=== PATIENT | female | born 1935 | race Caucasian/White ===

== ENCOUNTER 2017-09-09 15:47 | Outpatient (CLI) | payer MEDICARE, OTHER | END 2017-09-09 15:48 | disposition home or self-care (01) | LOC: BICMAMMO 15:47 | PROVIDERS: ATTEND Family Medicine | DX: Z13.820 Encounter for screening for osteoporosis (principal); M81.0 Age-related osteoporosis without current pathological fracture; M47.896 Other spondylosis, lumbar region | CPT/HCPCS: 77080 ==

== ENCOUNTER 2018-06-23 14:17 | Outpatient (CLI) | payer MEDICARE, OTHER | END 2018-06-23 14:18 | disposition home or self-care (01) | LOC: BICMAMMO 14:17 | PROVIDERS: ATTEND Family Medicine | DX: Z12.31 Encounter for screening mammogram for malignant neoplasm of breast (principal); R92.1 Mammographic calcification found on diagnostic imaging of breast; Z80.3 Family history of malignant neoplasm of breast | CPT/HCPCS: 77063; 77067 ==

== ENCOUNTER 2018-09-26 13:03 | Inpatient (IN) | payer MEDICARE, OTHER ==
[2018-09-26 13:49] LABS: #Eosinphils 0.3 thou/uL (0.0-0.7); #Lymphocytes 1.7 thou/uL (1.20-3.40); #Monocytes 0.8 thou/uL (0.11-0.59); #Neutrophils 9.8 thou/uL (1.40-6.50); %Basophils 0.4 % (0.0-1.0); %Eosinophils 2.2 % (0.0-10.0); %Lymphocytes 13.3 % (21.0-51.0); %Monocytes 6.4 % (0.0-10.0); %Neutrophils 77.7 % (42.0-75.0); Hemoglobin 14.8 g/dL (12.0-16.0); Mean Corpuscular HGB CONC 31.5 g/dL (32.0-36.0); Mean Corpuscular Hemoglobin 29.3 pg (27.0-31.0); Mean Corpuscular Volume 93.2 fL (78.0-98.0); Mean Platelet Volume 7.8 fL (7.4-10.4); Platelet Count 408 thou/uL (130-400); RBC Distribution Width 11.9 % (11.5-14.5); Red Blood Cell (RBC) Count 5.06 mill/uL (4.20-5.40); White Blood Cell (WBC) Count 12.6 thou/uL (4.8-10.8)
--- NOTE | 2018-09-26 14:00 | RAD ---
PORTABLE CHEST: Date: 09-26-18 Provided Clinical History: Chest pain. FINDINGS: Comparison made of 04-01-16. The cardiac and mediastinal silhouette is unchanged in appearance. Vascular calcification is noted in volving the aortic arch. No focal consolidation, pleural fluid or pneumothorax apparent. IMPRESSION: No evidence for an acute cardiopulmonary process. POS: [facility]
[2018-09-26 15:23] LABS: ALT (SGPT) 13 U/L (8-55); AST (SGOT) 14 U/L (5-34); Albumin 4.1 g/dL (3.4-4.8); Alkaline Phosphatase 72 U/L (40-150); Anion Gap 15 mmol/L (10-20); BUN (Urea Nitrogen) 23 mg/dL (9.8-20.1); Bilirubin, Total 0.5 mg/dL (0.2-1.2); Calc. Creatinine Clearance 0 mL/min (70-130); Calcium 9.5 mg/dL (7.8-10.44); Carbon Dioxide 26 mmol/L (23-31); Chloride 100 mmol/L (98-107); Estimated GFR-MDRD 44; Globulin 2.9 g/dL (2.4-3.5); Glucose 136 mg/dL (83-110); Potassium 4.2 mmol/L (3.5-5.1); Sodium 137 mmol/L (136-145)
[2018-09-26] MEDS ORDERED: Ondansetron PF 4 MG/2 ML Vial ONE (16:35)
--- NOTE | 2018-09-26 17:09 | CT ---
CT BRAIN: Date: 09/26/18 HISTORY: Altered mental status. TECHNIQUE: Noncontrast enhanced CT images of brain obtained from the base of the skull to the vertex. Brain and bone windows are obtained. FINDINGS: CT images of the brain demonstrate hyperostosis frontalis interna. No evidence of acute intracranial masses, hemorrhages, strokes, or contusions seen. The ventricles are of normal size. IMPRESSION: Normal CT brain. POS: [facility]
[2018-09-26 18:38] LABS: Bilirubin Small (Negative); Blood, Urine Negative (Negative); Clarity CLEAR (Clear); Glucose, Urine (Dipstick) Negative (Negative); Leukocyte Negative (Negative); Nitrite Negative (Negative); Protein, Urine (Dipstick) Negative (Neg-Trace); Specific Gravity, Urine 1.019 (1.002-1.036); Urobilinogen 0.2 mg/dL (0.2-1.0)
[2018-09-26] MEDS ORDERED: Ondansetron PF 4 MG/2 ML Vial IVP PRN (22:58)
[2018-09-26] MEDS ORDERED: HYDROcodone/Acetaminophen 5/325 mg Tablet PO PRN (22:58)
[2018-09-26] MEDS: Sodium Chloride 0.9% 1,000 ML IV SCH (23:55)
[2018-09-27 01:08] VITALS: BMI 32.1
[2018-09-27 05:50] LABS: #Basophils 0.1 thou/uL (0.0-0.2); #Eosinphils 0.3 thou/uL (0.0-0.7); #Lymphocytes 2.1 thou/uL (1.20-3.40); #Monocytes 0.9 thou/uL (0.11-0.59); #Neutrophils 6.5 thou/uL (1.40-6.50); %Basophils 0.5 % (0.0-1.0); %Eosinophils 2.8 % (0.0-10.0); %Lymphocytes 21.3 % (21.0-51.0); %Monocytes 9.4 % (0.0-10.0); %Neutrophils 65.9 % (42.0-75.0); Hemoglobin 12.9 g/dL (12.0-16.0); Mean Corpuscular HGB CONC 31.3 g/dL (32.0-36.0); Mean Corpuscular Hemoglobin 29.7 pg (27.0-31.0); Mean Corpuscular Volume 94.8 fL (78.0-98.0); Mean Platelet Volume 7.8 fL (7.4-10.4); Platelet Count 338 thou/uL (130-400); RBC Distribution Width 11.8 % (11.5-14.5); Red Blood Cell (RBC) Count 4.35 mill/uL (4.20-5.40); White Blood Cell (WBC) Count 9.9 thou/uL (4.8-10.8)
[2018-09-27 06:16] LABS: Anion Gap 10 mmol/L (10-20); BUN (Urea Nitrogen) 25 mg/dL (9.8-20.1); Calc. Creatinine Clearance 51 mL/min (70-130); Calcium 9.1 mg/dL (7.8-10.44); Carbon Dioxide 24 mmol/L (23-31); Chloride 106 mmol/L (98-107); Estimated GFR-MDRD 48; Glucose 98 mg/dL (83-110); Potassium 4.8 mmol/L (3.5-5.1); Sodium 135 mmol/L (136-145)
--- NOTE | 2018-09-27 07:32 | HP ---
CHIEF COMPLAINT: Weakness, confusion, and history of UTI in the past. HISTORY OF PRESENT ILLNESS: She is an 83-year-old woman with past history of hypertension, hyperlipidemia. She was brought in because she started Bactrim for UTI from her PCP 3 days ago and now she started feeling confused, generalize weakness, and also nausea and vomiting. She called her PCP and she told her to bring back in the ER. The patient was brought to the ER with vitals; pulse 70, blood pressure 121/74, respirations 18, and temperature 99.4. In the ER, she showed some kind of dehydration with high BUN-creatinine ratio and brought in the hospital for dehydration and acute encephalopathy. The patient denies any fever or any cough. No any stroke like symptom. PAST MEDICAL HISTORY: Hypertension, hyperlipidemia, history of borderline diabetes. PAST SURGICAL HISTORY: She has history of colostomy with reversal, direct hernia repair. FAMILY HISTORY: Noncontributory. PSYCHIATRIC HISTORY: Depression. SOCIAL HISTORY: She denies alcohol use, any smoke use. Lives at home alone with good family support system. In the ER, she was given normal saline, 1 L of bolus and Zofran intravenous. REVIEW OF SYSTEMS: CONSTITUTIONAL: She does have weakness. No fever. No chills. EYES: No photophobia. No discharge. ENT: No epistaxis. No stridor. CARDIOVASCULAR: No chest pain. No syncope. No palpitation. RESPIRATORY: No cough. No shortness of breath. GASTROINTESTINAL: She does have some nausea and vomiting. No diarrhea. No constipation. MUSCULOSKELETAL: No joint stiffness. NEUROLOGIC: She does have some confusion, but no any mental status change. PHYSICAL EXAMINATION: GENERAL: When I examined her, she is elder woman, looks younger than age, responding to question properly, but does have some memory lapse. VITAL SIGNS: Pulse 53, blood pressure 142/64, respirations 20, temperature 98.4. HEENT: Head is atraumatic and normocephalic. Pupils are round and reactive. Extraocular muscles are intact. Ear, nose, and throat, normal. Tongue, mucosa moist. NECK: Supple. No JVD. No thyromegaly. CHEST: Normal vesicular breathing. No added sound. CVS: S1, S2 is audible. No S3, no S4. ABDOMEN: Soft, bowel sound is audible. EXTREMITIES: No pedal edema. DIRECTOR OF INSTITUTIONAL RESEARCH: Alert x3. No focal deficits. LABORATORY DATA: Urine show negative, no UTI. WBC 12.6, platelets 408, MCV 93, and hemoglobin 14.8. Chemistry; sodium 137, potassium 4.2, chloride 100, carbon dioxide 26, BUN 23, creatinine 1.18, and glucose 136. Total bilirubin 0.5. Ammonia 28. Serum total protein 7.0, albumin 4.1, globulin 2.9. TSH 3rd generation 1.3. CAT scan of head is normal. Chest x-ray normal. No evidence of any acute cardiopulmonary disease. ASSESSMENT: 1. Acute kidney injury. 2. Dehydration. 3. Acute encephalopathy. PLAN: 1. Acute kidney injury with dehydration most likely due to Bactrim. We will hold Bactrim, IV fluid. Follow BMP. 2. UTI ruled out. No need of antibiotics at this time. 3. Acute encephalopathy. Currently, she is stabilized, good metabolic, currently feeling much better. We will continue to monitor her closely. 4. PT consult. 5. Deep venous thrombosis prophylaxis, on Lovenox. 6. Full code. Job ID: [id number]
[2018-09-27] MEDS: Enoxaparin Sodium 40 MG/0.4 ML SYRINGE SC SCH (10:10)
--- NOTE | 2018-09-27 10:19 | MRI ---
MRI BRAIN WITHOUT AND WITH CONTRAST: Comparison: 09-26-18 History: Acute delirium. Bilateral leg weakness for two weeks. Technique: Multiplanar, multisequence MRI images were obtained of the brain without and with IV contr ast. FINDINGS: There are a few subtle scattered foci of high FLAIR signal in the subcortical and periventricular whi te matter, likely secondary to small vessel ischemic disease. No restricted diffusion is seen to sugg est an acute infarction. No abnormal enhancement is seen. There is no evidence of hydrocephalus, intracranial hemorrhage, or extraaxial fluid collections. The expected flow voids are present. The corpus callosum, pituitary, and craniocervical junction are unre markable. The calvarium and overlying soft tissues are unremarkable. The visualized paranasal sinuses and masto id air cells are well aerated. IMPRESSION: No evidence of acute intracranial abnormality. POS: [facility]
[2018-09-27] MEDS: Sodium Chloride 0.9% 1,000 ML IV SCH ×2 (10:20→20:45)
--- NOTE | 2018-09-27 12:48 | PDOC.PN ---
- Subjective Encounter Start Date: 09/27/18 Encounter Start Time: 11:00 Subjective: Patient examined, resting in bed, no complaints -: Family at the bedside -: Son reports able to do ADLs until 1 week ago - Objective Resuscitation Status - Order Detail: 09/26/18 22:58 Resuscitation Status Routine Resuscitation Status: FULL: Full Resuscitation Discussed with: patient Vital Signs & Weight: Vital Signs (12 hours) Temp Pulse Resp BP Pulse Ox 09/27/18 07:20 97.6 F 65 16 148/72 H 95 Weight Weight 84.867 kg Result Diagrams: 09/27/18 05:29 09/27/18 05:29 Additional Labs: Accuchecks 09/27/18 11:23 POC Glucose 150 H Phys Exam - Physical Examination HEENT: PERRLA, moist MMs Neck: no nodes, no JVD Respiratory: no wheezing, clear to auscultation bilateral Cardiovascular: RRR, no significant murmur Gastrointestinal: soft, non-tender Musculoskeletal: no edema, pulses present Neurological: normal sensation, moves all 4 limbs Lymphatic: no nodes Psychiatric: normal affect, A&O x 3 Skin: normal turgor, cap refill <2 seconds Dx/Plan (1) Weakness Code(s): R53.1 - WEAKNESS Status: Acute (2) Confusion state Code(s): F44.89 - OTHER DISSOCIATIVE AND CONVERSION DISORDERS Status: Acute (3) Hypertension Code(s): I10 - ESSENTIAL (PRIMARY) HYPERTENSION Status: Chronic - Plan cont current plan of care Stroke work-up, MRI today was unremarkable -: Will ask PT, OT and CM to evaluate for possible Rehab/Home PT -: Will repeat labs, follow culture results * . Review of Systems - Review of Systems Musculoskeletal: Other (generalized weakness to legs, unable to ambulate this past week as normal) Neurological: Confusion - Medications/Allergies Allergies/Adverse Reactions: Allergies Allergy/AdvReac Type Severity Reaction Status Date / Time No Known Allergies Allergy Unverified 09/26/18 23:17 Medications: Current Medications Acetaminophen (Tylenol) 650 mg PO Q4H PRN PRN Reason: Headache/Fever/Mild Pain (1-3) Hydrocodone Bitart/Acetaminophen (Sneads 5/325) 1 tab PO Q4H PRN PRN Reason: Moderate Pain (4-6) Enoxaparin Sodium (Lovenox) 40 mg SC 0900 [facility] Last Admin: 09/27/18 10:10 Dose: 40 mg Sodium Chloride (Normal Saline 0.9%) 1,000 mls @ 100 mls/hr IV .Q10H [facility] Last Admin: 09/27/18 10:20 Dose: 1,000 mls Ondansetron HCl (Zofran) 4 mg IVP Q6H PRN PRN Reason: Nausea/Vomiting Sodium Chloride (Flush - Normal Saline) 10 ml IVF Q12HR [facility] Last Admin: 09/27/18 10:20 Dose: 10 ml Sodium Chloride (Flush - Normal Saline) 10 ml IVF PRN PRN PRN Reason: Saline Flush
--- NOTE | 2018-09-27 14:47 | ULT ---
CAROTID DOPPLER ULTRASOUND: Date: 09/27/18 HISTORY: Confusion, weakness, and delirium. COMPARISON: None. TECHNIQUE: Real-time Duque scale, color Doppler, and spectral analysis of the extracranial carotid and vertebral arteries was performed. FINDINGS: The right vertebral artery is not well seen. Antegrade flow left vertebral artery. No elevated peak s ystolic velocity within the left internal carotid arterial system. No elevated peak systolic velociti es in the proximal or mid right internal carotid artery. The distal internal carotid artery is not we ll seen nor is the mid CCA. IMPRESSION: Nonvisualization of right vertebral artery, mid right CCA or distal right ICA. Nonemergent CT angiogr am may be beneficial if clinically warranted. POS: [facility]
[2018-09-27] MEDS ORDERED: HumaLOG 300 UNITS/3 ML VIAL SC PRN (17:31)
[2018-09-27] MEDS ORDERED: Dextrose 5% in Water 1,000 ML IV PRN (17:31)
[2018-09-27] MEDS ORDERED: Dextrose 50% Abboject 50 ML SYRINGE SLOW IVP PRN (17:31)
[2018-09-28] MEDS: Sodium Chloride 0.9% 1,000 ML IV SCH ×3 (04:36→17:45)
[2018-09-28] MEDS: Enoxaparin Sodium 40 MG/0.4 ML SYRINGE SC SCH (09:14)
--- NOTE | 2018-09-28 09:36 | CT ---
CT ANGIOGRAM GREAT VESSELS OF NECK WITH IV CONTRAST AND 3D MIP RECONSTRUCTIONS: 09/28/2018 PROVIDED CLINICAL HISTORY: Confusion. Weakness. Delirium. FINDINGS: There is a normal, three-vessel configuration of the great vessels at the arch. There is a prominent medialized retropharyngeal course of the common carotid arteries bilaterally. The vertebral, innomi earl, subclavian, and common carotid arteries demonstrate no evidence for significant stenosis. Mild atherosclerotic plaque involves the distal right CCA. The right internal carotid artery appears wit hout significant stenosis. The left internal carotid artery demonstrates mild stenosis, just distal to the origin. This is less than 50%. The visualized lung apices appear clear. No evidence for regional lymph node enlargement. Submandib ular and parotid glands appear unremarkable. Cervical spine degenerative changes are seen. No lytic or blastic lesions are evident. IMPRESSION: No significant stenosis is seen involving the great vessels of the neck. POS: [facility]
[2018-09-28] MEDS ORDERED: Iopamidol 370 76% 100 ML VIAL ONE (11:25)
[2018-09-28 11:38] LABS: ALT (SGPT) 10 U/L (8-55); AST (SGOT) 11 U/L (5-34); Albumin 3.3 g/dL (3.4-4.8); Alkaline Phosphatase 66 U/L (40-150); Anion Gap 10 mmol/L (10-20); BUN (Urea Nitrogen) 17 mg/dL (9.8-20.1); Bilirubin, Total 0.4 mg/dL (0.2-1.2); Calc. Creatinine Clearance 66 mL/min (70-130); Calcium 8.5 mg/dL (7.8-10.44); Carbon Dioxide 25 mmol/L (23-31); Chloride 106 mmol/L (98-107); Estimated GFR-MDRD 64; Globulin 2.2 g/dL (2.4-3.5); Glucose 200 mg/dL (83-110); Potassium 3.7 mmol/L (3.5-5.1); Protein, Total 5.5 g/dL (6.0-8.3); Sodium 137 mmol/L (136-145)
[2018-09-28] MEDS ORDERED: Senokot S 8.6-50 MG TAB PO PRN (12:06)
[2018-09-28] MEDS ORDERED: Bisacodyl 10 MG SUPP PR PRN (12:06)
--- NOTE | 2018-09-28 12:25 | PDOC.PN ---
- Subjective Encounter Start Date: 09/28/18 Encounter Start Time: 11:00 Subjective: patient examined, sleeping initially but easily arouses and alert -: C/o of right ankle pain, started to hurt overnight, denies injury -: Family mentioned pt is close to baseline with mentation, improved from adm - Objective Resuscitation Status - Order Detail: 09/26/18 22:58 Resuscitation Status Routine Resuscitation Status: FULL: Full Resuscitation Discussed with: patient Vital Signs & Weight: Vital Signs (12 hours) Temp Pulse Resp BP BP Pulse Ox 09/28/18 09:45 215/73 H 09/28/18 08:00 98.3 F 84 09/28/18 05:30 98.3 F 84 18 156/71 H 96 Weight Weight 84.867 kg I&O: 09/27/18 09/28/18 09/29/18 06:59 06:59 06:59 Intake Total 3930 247 Balance 3930 247 Result Diagrams: 09/27/18 05:29 09/28/18 11:06 Additional Labs: Accuchecks 09/28/18 09/28/18 09/27/18 12:06 05:47 19:39 POC Glucose 157 H 102 146 H 09/27/18 15:40 POC Glucose 147 H Phys Exam - Physical Examination HEENT: PERRLA, moist MMs Neck: no nodes, no JVD Respiratory: no wheezing, clear to auscultation bilateral Cardiovascular: RRR, no significant murmur Gastrointestinal: soft, non-tender Musculoskeletal: no edema, pulses present mild lateral edema noted to rt ankle, tender to palpation, no erythema/warm Neurological: moves all 4 limbs Lymphatic: no nodes Psychiatric: normal affect, A&O x 3 Skin: normal turgor, cap refill <2 seconds Dx/Plan (1) Weakness Code(s): R53.1 - WEAKNESS Status: Acute (2) Confusion state Code(s): F44.89 - OTHER DISSOCIATIVE AND CONVERSION DISORDERS Status: Resolved (3) Hypertension Code(s): I10 - ESSENTIAL (PRIMARY) HYPERTENSION Status: Chronic (4) Arthritis Code(s): M19.90 - UNSPECIFIED OSTEOARTHRITIS, UNSPECIFIED SITE Status: Chronic - Plan Awaiting PT eval and approval for SNF/Rehab placement -: Family and patient agree -: Ankle CXR for new onset ankle pain, pt has hx of OA. Elevate/ice -: Will continue to monitor * .
--- NOTE | 2018-09-28 12:59 | RAD ---
THREE VIEWS RIGHT ANKLE: INDICATION: Pain with ambulation, swelling, laterally. FINDINGS: There is soft tissue prominence of the right ankle, greatest at the lateral aspect. Mortise is intac t. There is no evidence of acute fracture. Osseous demineralization and scattered degenerative [place] ge present. There are vascular calcifications present. IMPRESSION: 1. Soft tissue prominence of the right ankle. 2. No underlying displaced fracture. POS: [facility]
[2018-09-28] MEDS: Acetaminophen 325 MG TAB PO PRN (18:16)
[2018-09-29] MEDS: Sodium Chloride 0.9% 1,000 ML IV SCH (05:00)
[2018-09-29 07:05] LABS: ALT (SGPT) 9 U/L (8-55); AST (SGOT) 10 U/L (5-34); Albumin 2.9 g/dL (3.4-4.8); Alkaline Phosphatase 53 U/L (40-150); Anion Gap 9 mmol/L (10-20); BUN (Urea Nitrogen) 12 mg/dL (9.8-20.1); Bilirubin, Total 0.4 mg/dL (0.2-1.2); Calc. Creatinine Clearance 75 mL/min (70-130); Calcium 8.2 mg/dL (7.8-10.44); Carbon Dioxide 27 mmol/L (23-31); Chloride 109 mmol/L (98-107); Estimated GFR-MDRD 76; Globulin 2.1 g/dL (2.4-3.5); Glucose 109 mg/dL (83-110); Potassium 3.8 mmol/L (3.5-5.1); Sodium 141 mmol/L (136-145)
[2018-09-29] MEDS: Enoxaparin Sodium 40 MG/0.4 ML SYRINGE SC SCH (09:22)
[2018-09-29] MEDS: Acetaminophen 325 MG TAB PO PRN (11:24)
[2018-09-29 12:09] LABS: #Basophils 0.1 thou/uL (0.0-0.2); #Eosinphils 0.3 thou/uL (0.0-0.7); #Lymphocytes 1.3 thou/uL (1.20-3.40); #Monocytes 0.6 thou/uL (0.11-0.59); #Neutrophils 3.6 thou/uL (1.40-6.50); %Eosinophils 4.5 % (0.0-10.0); %Lymphocytes 21.8 % (21.0-51.0); %Monocytes 10.4 % (0.0-10.0); %Neutrophils 62.3 % (42.0-75.0); Mean Corpuscular HGB CONC 31.5 g/dL (32.0-36.0); Mean Corpuscular Hemoglobin 30.2 pg (27.0-31.0); Mean Corpuscular Volume 95.8 fL (78.0-98.0); Mean Platelet Volume 8.6 fL (7.4-10.4); Platelet Count 289 thou/uL (130-400); RBC Distribution Width 12.1 % (11.5-14.5); Red Blood Cell (RBC) Count 3.98 mill/uL (4.20-5.40); White Blood Cell (WBC) Count 5.7 thou/uL (4.8-10.8)
[2018-09-29 12:30] LABS: CRP (Inflammatory) 7.96 mg/dL (= or < 0.5); Magnesium 1.4 mg/dL (1.6-2.6)
[2018-09-29 14:10] VITALS: BP 153/72; TEMP 97.8
== END 2018-09-29 13:46 | disposition home or self-care (01) | DRG 683 ==
LOC: ERS 13:03 → ERHOLD 20:09 → UNDOADMOB 20:09 → T4-B 20:10 → ERHOLD 09-27 01:00 → T4-B 09-27 01:00 → INTOOBSV 09-29 13:16 → OBSVTOIN 09-29 13:16 → UNDODISOB 09-29 13:45
PROVIDERS: ADMIT Family Medicine; ATTEND Family Medicine
DX: N17.9 Acute kidney failure, unspecified (principal); G93.40 Encephalopathy, unspecified; I10 Essential (primary) hypertension; E78.5 Hyperlipidemia, unspecified; E86.0 Dehydration; R73.03 Prediabetes; F32.9 Major depressive disorder, single episode, unspecified; M25.571 Pain in right ankle and joints of right foot
CPT/HCPCS: 36415; 36416; 70450; 70498; 70553; 71045; 80048; 80053; 81003; 82140; 82550; 82553; 83605; 83735; 84443; 84484; 85025; 86140; 87040; 87086; 87804; 93005; 93306; 93880; A4353; J1650; J2405; Q9967

== ENCOUNTER 2020-08-22 13:30 | Outpatient (CLI) | payer MEDICARE, OTHER ==
--- NOTE | 2020-08-22 14:07 | MMO ---
Bilateral MAMMO Bilat Screen [facility]. CLINICAL HISTORY: Patient is 85 years old and is seen for screening. The patient has the following family history of breast cancer: mother. The patient has no personal history of cancer. VIEWS: The views performed were: bilateral craniocaudal with tomosynthesis and bilateral mediolateral oblique with tomosynthesis. FILMS COMPARED: The present examination has been compared to prior imaging studies performed at [facility] on 05/11/2013, 08/01/2015, 02/18/2017 and 06/23/2018. This study has been interpreted with the assistance of computer-aided detection. MAMMOGRAM FINDINGS: There are scattered fibroglandular densities. Benign calcifications are noted bilaterally. There are no suspicious masses, suspicious calcifications, or new areas of architectural distortion. IMPRESSION: THERE IS NO MAMMOGRAPHIC EVIDENCE OF MALIGNANCY. A ROUTINE FOLLOW-UP MAMMOGRAM IN 1 YEAR IS RECOMMENDED. THE RESULTS OF THIS EXAM WERE SENT TO THE PATIENT. ACR BI-RADS Category 2 - Benign finding MAMMOGRAPHY NOTE: 1. A negative mammogram report should not delay a biopsy if a dominant of clinically suspicious mass is present. 2. Approximately 10% to 15% of breast cancers are not detected by mammography. 3. Adenosis and dense breasts may obscure an underlying neoplasm. Reported by: ALEJANDRO ABDALLA MD Electonically Signed: [id number]
== END 2020-08-22 13:31 | disposition home or self-care (01) ==
LOC: BICMAMMO 13:30
PROVIDERS: ATTEND Family Medicine
DX: Z12.31 Encounter for screening mammogram for malignant neoplasm of breast (principal); Z80.3 Family history of malignant neoplasm of breast
CPT/HCPCS: 77063; 77067

== ENCOUNTER 2022-09-22 14:25 | Outpatient (CLI) | payer MEDICARE ==
[2022-09-22 16:26] LABS: #Basophils 0.1 thou/uL (0.0-0.2); #Eosinphils 0.3 thou/uL (0.0-0.7); #Lymphocytes 1.6 thou/uL (1.20-3.40); #Monocytes 0.5 thou/uL (0.11-0.59); #Neutrophils 5.2 thou/uL (1.40-6.50); %Basophils 1.2 % (0.0-1.0); %Eosinophils 3.6 % (0.0-10.0); %Lymphocytes 20.9 % (21.0-51.0); %Neutrophils 67.3 % (42.0-75.0); Hemoglobin 13.4 g/dL (12.0-16.0); Mean Corpuscular HGB CONC 33.2 g/dL (32.0-36.0); Mean Corpuscular Hemoglobin 32.2 pg (27.0-31.0); Mean Corpuscular Volume 97.1 fl (78.0-98.0); Mean Platelet Volume 8.3 fL (7.4-10.4); Platelet Count 305 10x3/uL (130-400); RBC Distribution Width 11.9 % (11.5-14.5); Red Blood Cell (RBC) Count 4.17 mill/uL (4.20-5.40); White Blood Cell (WBC) Count 7.7 10x3/uL (4.8-10.8)
[2022-09-22 16:49] LABS: ALT (SGPT) 17 U/L (8-55); AST (SGOT) 15 U/L (5-34); Albumin 3.9 g/dL (3.4-4.8); Alkaline Phosphatase 83 U/L (40-110); Anion Gap 13 mmol/L (10-20); BUN (Urea Nitrogen) 30 mg/dL (9.8-20.1); Bilirubin, Total 0.4 mg/dL (0.2-1.2); Calc. Creatinine Clearance 0 mL/min (70-130); Calcium 9.4 mg/dL (7.8-10.44); Carbon Dioxide 30 mmol/L (23-31); Chloride 100 mmol/L (98-107); Estimated GFR 46; Globulin 2.6 g/dL (2.4-3.5); Glucose 142 mg/dL (83-110); Potassium 4.1 mmol/L (3.5-5.1); Protein, Total 6.5 g/dL (5.8-8.1); Sodium 139 mmol/L (136-145)
== END 2022-09-22 14:26 | disposition home or self-care (01) ==
LOC: SCSRAD 14:25
PROVIDERS: ATTEND Family Medicine
DX: R06.00 Dyspnea, unspecified (principal)
CPT/HCPCS: 36415; 71046; 80053; 83880; 85025

== ENCOUNTER 2023-03-11 13:54 | Outpatient (CLI) | payer MEDICARE | END 2023-03-11 13:55 | disposition home or self-care (01) | LOC: BICMAMMO 13:54 | PROVIDERS: ATTEND Family Medicine | DX: Z12.31 Encounter for screening mammogram for malignant neoplasm of breast (principal); Z80.3 Family history of malignant neoplasm of breast | CPT/HCPCS: 77063; 77067 ==